=== PATIENT | female | born 1985 | race Caucasian/White ===

== ENCOUNTER 2020-09-02 20:14 | Emergency (ER) | payer OTHER, SELFPAY ==
[2020-09-02 21:05] VITALS: BP 127/58; PULSE 66; RESP 16; TEMP 36.4; O2SAT 98; BMI 25.7
[2020-09-02 22:58] VITALS: BP 116/64; PULSE 74; RESP 18; TEMP 36.8; O2SAT 96
--- NOTE | 2020-09-02 23:02 | ED_ITS ---
HPI - General Adult General Chief complaint: Extremity Problem Stated complaint: Bilateral arm swelling Time Seen by Provider: 09/02/20 23:02 Source: patient Mode of arrival: ambulatory Limitations: no limitations History of Present Illness HPI narrative: Patient no significant past medical history noticed swelling of the legs and upper extremities for last 1 week without any shortness of breath or chest pain. No prior history of anemia or liver disease patient is non alcoholic no thyroid problems. Patient has noticed swelling gets worse when she lays down. No leg pain or extremity pain no history of blood clots kidney problems or liver problems Related Data Allergies Allergy/AdvReac Type Severity Reaction Status Date / Time No Known Allergies Allergy Unverified 01/25/20 16:21 Review of Systems Review of Systems: Constitutional : No Weight loss, No Fever, No Chills ENT/Mouth : No sore throat, No Rhinorrhea Eyes: No Eye Pain, No Swelling Cardiovascular : No Chest Pain, no palpitations Respiratory : No Cough, No Sputum, no shortness of breath Gastrointestinal : no Nausea, No Vomiting, No Diarrhea, No abdominal Pain, no black stools Genitourinary : No Dysuria, No Urinary Frequency Musculoskeletal : No joint pain, No Myalgias, No Joint Swelling Skin : No Skin Lesions, No rash Neuro : No Weakness, No Numbness, No Dizziness, No Headache Psych : No Anxiety/Panic, No Depression Heme/Lymph: No Bruising, No Lymphadenopathy Endocrine : No Polyuria, No Polydipsia All other systems reviewed and are negative [facility] Past Medical History Medical History No known health problems Social History Social History Advance Directives: No Advance Directives Information Provided: Yes Physical Exam Vital Signs: Vital Signs: Last Vital Signs Temp 98.8 F 09/02/20 23:53 Pulse 75 09/02/20 23:53 Resp 16 09/02/20 23:53 BP 113/61 09/02/20 23:53 Pulse Ox 100 09/02/20 23:53 Body Mass Index 25.7 Appearance: Alert. Oriented X3. No acute distress. Eyes: PERRLA, No Nystagmus ENT: Pharynx normal. Oral Mucosa moist Neck: Normal inspection. Neck supple. CVS: Normal heart rate and rhythm. Pulses normal. Respiratory: No respiratory distress. Equal air entry bilateral, no wheezing/rales/rhonchi Abdomen: Soft and nontender. Bowel sounds are present, no mass palpable, no CVA tenderness Skin: Skin warm and dry. Normal skin color. Normal skin turgor. Extremities: Nonpitting 1+ lower extremity edema. No calf tenderness puffiness of both upper extremities without pitting edema Neuro: Oriented X 3. No motor deficit. No sensory deficit.No cerebellar signs , cranial nerves II-XII intact Medical Decision Making MDM Narrative Medical decision making narrative: Patient nonspecific puffiness without any pitting edema lab workup negative for any liver dysfunction kidney dysfunction thyroid functions are normal will discharge patient home advised to follow with PCP Lab Data Lab results reviewed: Yes I reviewed the patient's lab results. Result diagrams: 09/02/20 23:46 09/02/20 23:46 Labs: Lab Results 09/02/20 09/02/20 09/02/20 Range/Units 23:46 23:46 23:46 WBC 8.7 (4.8-10.8) X10*3/uL RBC 4.01 L (4.20-5.50) X10*6/uL Hgb 13.2 (12.0-16.0) g/dl Hct 38.3 (37-47) % MCV 95.5 (80-98) fL MCH 32.9 (27.0-33.0) pg MCHC 34.5 (31.0-35.0) g/dl RDW 11.6 (11.0-16.0) % Plt Count 254 (160-400) X10*3/uL MPV 10.4 (9.4-12.3) fL Immature Gran % (Auto) 0.7 H (0.0-0.4) % Neut % (Auto) 64.3 (45-73) % Lymph % (Auto) 24.6 (20-40) % Polk % (Auto) 6.6 (2-11) % Eos % (Auto) 3.2 (0-4) % Baso % (Auto) 0.6 (0-2) % Lymph # (Auto) 2.1 (1.2-4.9) X10*3/uL Polk # (Auto) 0.6 (0.1-1.2) X10*3/uL Eos # (Auto) 0.3 (0.0-0.4) X10*3/uL Baso # (Auto) 0.1 (0.0-0.2) X10*3/uL Abs Immat Gran (auto) 0.06 H (0.00-0.03) X10*3/uL Absolute Neuts (auto) 5.6 (2.0-8.3) X10*3/uL Absolute Nucleated RBC 0.000 (0.0-0.012) X10*3/uL Nucleated RBC % (auto) 0.0 (0.0-0.2) /100WBC Sodium 138 (135-145) mmol/L Potassium 3.8 (3.3-5.1) mmol/L Chloride 106 (96-108) mmol/L Carbon Dioxide 23 (22-29) mmol/L Anion Gap 13 (12-20) BUN 13 (9-16) mg/dL Creatinine 0.80 (0.5-1.4) mg/dL Estim Creat Clear Calc 92.1 Estimated GFR > 60 Random Glucose 98 (60-115) mg/dL Calcium 9.1 (8.4-10.2) mg/dL Total Bilirubin 0.7 (0.0-1.0) mg/dL AST 24 (5-31) U/L ALT 26 (0-31) U/L Alkaline Phosphatase 66 (39-117) U/L B-Natriuretic Peptide 10 (<100) pg/mL Total Protein 6.5 (6.5-8.0) g/dL Albumin 3.8 (3.5-5.0) g/dL TSH 0.92 (0.32-4.0) uIU/mL Discharge Plan Discharge Clinical Impression: Edema Qualifiers: Edema type: generalized Qualified Code(s): R60.1 - Generalized edema Patient Disposition: Home, Self-Care Instructions: Edema (ED) Additional Instructions: The cause of body swelling is not very clear. Your blood workup including liver functions kidney functions and thyroid functions are normal Follow-up with your PCP as scheduled for further evaluation and treatment, maybe use of diuretics if swelling gets worse
[2020-09-02 23:26] VITALS: BP 106/54; PULSE 75; RESP 12; O2SAT 98
[2020-09-02 23:53] VITALS: BP 113/61; PULSE 75; RESP 16; TEMP 37.1; O2SAT 100
[2020-09-02 23:53] LABS: MANUAL DIFF FLAG NO
[2020-09-02 23:55] LABS: Basophils Absolute Auto 0.1 X10*3/uL (0.0-0.2); Basophils Percent Auto 0.6 % (0-2); Eosinophils Absolute Auto 0.3 X10*3/uL (0.0-0.4); Eosinophils Percent Auto 3.2 % (0-4); Hematocrit 38.3 % (37-47); Hemoglobin 13.2 g/dl (12.0-16.0); Imm Gran Abs Auto 0.06 X10*3/uL (0.00-0.03); Imm Gran Pct Auto 0.7 % (0.0-0.4); Lymphocytes Absolute Auto 2.1 X10*3/uL (1.2-4.9); Lymphocytes Percent Auto 24.6 % (20-40); Mean Corpuscular HGB Conc 34.5 g/dl (31.0-35.0); Mean Corpuscular Hemoglobin 32.9 pg (27.0-33.0); Mean Corpuscular Volume 95.5 fL (80-98); Mean Platelet Volume 10.4 fL (9.4-12.3); Monocytes Absolute Auto 0.6 X10*3/uL (0.1-1.2); Monocytes Percent Auto 6.6 % (2-11); Neutrophils Absolute Auto 5.6 X10*3/uL (2.0-8.3); Neutrophils Percent Auto 64.3 % (45-73); Platelet Count 254 X10*3/uL (160-400); Red Blood Count 4.01 X10*6/uL (4.20-5.50); Red Cell Distribution Width 11.6 % (11.0-16.0); White Blood Count 8.7 X10*3/uL (4.8-10.8)
[2020-09-03 00:18] LABS: Alanine Aminotransferase 26 U/L (0-31); Albumin Level 3.8 g/dL (3.5-5.0); Alkaline Phosphatase 66 U/L (39-117); Anion Gap 13 (12-20); Aspartate Amino Transferase 24 U/L (5-31); Bilirubin Total 0.7 mg/dL (0.0-1.0); Blood Urea Nitrogen 13 mg/dL (9-16); Calcium 9.1 mg/dL (8.4-10.2); Carbon Dioxide 23 mmol/L (22-29); Chloride 106 mmol/L (96-108); Creatinine Clr Calc Pharmacy 92.1; Estimated Glomerular Filt Rate > 60; Glucose Random 98 mg/dL (60-115); Potassium 3.8 mmol/L (3.3-5.1); Sodium 138 mmol/L (135-145); Total Protein 6.5 g/dL (6.5-8.0)
[2020-09-03 00:21] LABS: B Type Natriuretic Peptide 10 pg/mL (<100)
--- NOTE | 2020-09-03 00:35 | PC.NURSE ---
PT STATES INCREASED SWELLING TO LEGS, FEET, HANDS & FOREARMS FOR >1 WEEK. PT STATES NO NEW MEDS, NO RECENT TRAVEL.
[2020-09-03 00:38] LABS: Thyroid Stimulating Hormone 0.92 uIU/mL (0.32-4.0)
== END 2020-09-03 00:45 | disposition home or self-care (01) ==
PROVIDERS: Emergency Provider Internal Medicine; PCP Internal Medicine
DX: R60.0 Localized edema (principal)
CPT/HCPCS: 36415; 80053; 83880; 84443; 85025; 99283

== ENCOUNTER 2022-08-08 01:53 | Emergency (ER) | payer OTHER, SELFPAY ==
[2022-08-08 02:28] VITALS: BP 142/87; PULSE 77; RESP 16; TEMP 36.4; O2SAT 97; BMI 26.6
--- NOTE | 2022-08-08 04:27 | PC.NURSE ---
pt did not return to the waiting room
== END 2022-08-08 04:28 | disposition left against medical advice (07) ==
PROVIDERS: Emergency Provider Emergency Medicine
DX: M54.2 Cervicalgia (principal)
CPT/HCPCS: 99281

== ENCOUNTER 2023-07-05 17:25 | Emergency (ER) | payer OTHER, SELFPAY ==
--- NOTE | ~2023-07-05 | US_ITS ---
EXAMINATION: US DIAGNOSTIC ULTRASOUND BREAST, RIGHT CLINICAL INFORMATION: Painful mass 12 - 2:00 position right breast. COMPARISON: None available. TECHNIQUE: Ultrasound of the breast is performed with real-time barrera scale imaging and color Doppler. FINDINGS: Multicystic area in the. Clinical concern. Largest is a septated cyst measuring 1.6 cm. Surrounding heterogeneous parenchyma. There is no solid mass, architectural abnormality, or ductal ectasia. US/US breast RT limited IMPRESSION: No suspicious mass. Multiple cysts at the 12 to 2:00 position right breast. ASSESSMENT: BI-RADS 2 - Benign Findings RECOMMENDATION: 1 year F/U This patient's information was entered into a reminder system with a target due date for their next mammogram.
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
[2023-07-05 17:55] VITALS: BP 145/85; PULSE 79; RESP 16; TEMP 36.6; O2SAT 99; BMI 30.3
[2023-07-05 18:56] LABS: MANUAL DIFF FLAG NO
[2023-07-05 18:58] LABS: Basophils Absolute Auto 0.1 X10*3/uL (0.0-0.2); Basophils Percent Auto 0.4 % (0-2); Eosinophils Absolute Auto 0.3 X10*3/uL (0.0-0.4); Eosinophils Percent Auto 2.9 % (0-4); Hemoglobin 13.5 g/dl (12.0-16.0); Imm Gran Abs Auto 0.02 X10*3/uL (0.00-0.03); Imm Gran Pct Auto 0.2 % (0.0-0.4); Lymphocytes Absolute Auto 1.8 X10*3/uL (1.2-4.9); Lymphocytes Percent Auto 15.7 % (20-40); Mean Corpuscular HGB Conc 34.6 g/dl (31.0-35.0); Mean Corpuscular Hemoglobin 32.1 pg (27.0-33.0); Mean Corpuscular Volume 92.9 fL (80.0-98.0); Mean Platelet Volume 10.1 fL (9.4-12.3); Monocytes Absolute Auto 0.8 X10*3/uL (0.1-1.2); Monocytes Percent Auto 6.6 % (2-11); Neutrophils Absolute Auto 8.7 x10*3/uL (2.0-8.3); Neutrophils Percent Auto 74.2 % (45-73); Platelet Count 267 X10*3/uL (160-400); Red Cell Distribution Width 11.6 % (11.0-16.0); White Blood Count 11.7 X10*3/uL (4.8-10.8)
[2023-07-05 19:13] LABS: Alanine Aminotransferase 19 U/L (0-31); Albumin Level 3.9 g/dL (3.5-5.0); Alkaline Phosphatase 74 U/L (39-117); Anion Gap 10 (12-20); Aspartate Amino Transferase 19 U/L (5-31); Bilirubin Total 0.7 mg/dL (0.0-1.0); Blood Urea Nitrogen 12 mg/dL (9-16); Calcium 9.6 mg/dL (8.4-10.2); Carbon Dioxide 27 mmol/L (22-29); Chloride 108 mmol/L (96-108); Estimated Glomerular Filt Rate > 60; Glucose Random 98 mg/dL (60-115); Potassium 3.5 mmol/L (3.3-5.1); Sodium 141 mmol/L (135-145); Total Protein 6.8 g/dL (6.5-8.0)
[2023-07-05] MEDS: Ibuprofen 600 MG TABLET PO (21:46)
[2023-07-05] MEDS: Acetaminophen 325 MG TABLET 650 MG PO (21:46)
[2023-07-05 23:10] VITALS: BP 126/70; PULSE 84; RESP 16; O2SAT 98
[2023-07-05] MEDS: traMADoL HCL 50 MG TABLET PO (23:40)
[2023-07-05] MEDS: Ondansetron ODT 4 MG TAB.RAPDIS TRANSLINGU (23:40)
[2023-07-05] MEDS: cephALEXin 500 MG CAPSULE PO (23:40)
== END 2023-07-05 23:50 | disposition home or self-care (01) ==
PROVIDERS: Physician Assistant Medical; Emergency Provider Internal Medicine
DX: N64.4 Mastodynia (principal)
CPT/HCPCS: 36415; 76642; 80053; 83735; 85025; 99283; 99284

== ENCOUNTER 2023-09-08 18:38 | Emergency (ER) | payer OTHER, SELFPAY ==
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
[2023-09-08 19:08] VITALS: BP 131/70; PULSE 68; RESP 16; TEMP 36.7; O2SAT 96; BMI 24.9
--- OUTSIDE RECORDS SUMMARY | 2023-09-08 19:22 | XMS_ITS | Continuity of Care Document ---
Author Organization [facility] Address [address] [place] [address]- Care Team Providers Care Captain Assistant Name Role Phone Amisha Reid MD Primary Care Physician [phone] Encounter [facility] Date(s): 07/29/23 - 08/28/23 [facility] [address] [place] [id number]- Attending Physician: Kira Cruz Admitting Physician: Admtr, [id number] Referring Physician: Admtr, [id number] Allergies, Adverse Reactions, Alerts No Known Allergies Immunizations Given and Recorded Vaccine Date Status Refusal Reason influenza virus vaccine, inactivated 04/19/12 Give n tetanus/diphtheria/pertussis, acel(Tdap) 04/19/12 Given Medications gabapentin 100 mg oral capsule 100 mg, 1, capsule, By Mouth, 3 times a day, PRN, # 60 capsule, Refills 5, Tot. Refills 5, Maintenance, Pain , Moderate, 08/08/22 22:28:00 EDT, Route to Pharmacy Electronically, [facility]/pharmacy #[id number], Partial fill upon patient request if the prescription... Start Date: 08/08/22 Status: Ordered MetroGel-Vaginal 0.75% gel with applicator 1 application, Vaginally, Once, # 70 Gm, 0 Refills, Maintenance, Gel Start Date: 01/28/12 Stop Date: 02/02/12 Status: Ordered Multivitamins By Mouth, Daily, 0 Refills, Maintenance Start Date: 01/28/12 Status: Ordered Problem List Condition Confirmation Course Effective Dates Status Health St atus Informant Obese class I Confirmed Active Confirmed Active Social History Social History Type Response Smoking Status Never (less than 100 in lifetime) entered on: 07/29/23 Sex Patient Care team information Care Team Personnel Name: Rafael Salazar MD Position: [facility] ART DEPARTMENT HEAD MD Member Role: Lifetime ART DEPARTMENT HEAD Physician Address: Address: [address] [place] [address] [address]- Name: Franklin YI, Amisha Lanier Position: Reference Physician Member Role: PCP Address: Address: [address] [place] [id number]- Name: Martha Shipman MD Position: [facility] Renal MD Member Role: Lifetime Consulting Physician Address: Address: [address] [place] [address], [address] [facility] [place] [address]- Care Team Related Persons Name: TREVON CRUZ Address: home [address] [place] [address] Name: TOMA TRIANA Address: home [address] [address] Name: GAURANG SHAW
--- OUTSIDE RECORDS SUMMARY | 2023-09-08 19:22 | XMS_ITS | Continuity of Care Document ---
Author Organization [facility] Address [address] [facility] [address]- Care Team Providers Care Eyeglass Assembler Name Role Phone Amisha Reid MD Primary Care Physician Encounter [facility] Date(s): 07/29/23 - 08/05/23 [facility] [address] [place] [id number] Attending Physician: Claire Hayes NP Referring Physician: Amisha Reid MD Allergies, Adverse Reactions, Alerts No Known Allergies Immunizations Given and Recorded Vaccine Date Status Refusal Reason influenza virus vaccine, inactivated 04/19/12 Give n tetanus/diphtheria/pertussis, acel(Tdap) 04/19/12 Given Medications gabapentin 100 mg oral capsule 100 mg, 1, capsule, By Mouth, 3 times a day, PRN, # 60 capsule, Refills 5, Tot. Refills 5, Maintenance, Pain , Moderate, 08/08/22 22:28:00 EDT, Route to Pharmacy Electronically, [facility]/pharmacy #[id number], Partial fill upon patient request if the [...] Obese class I Confirmed Active Confirmed Active Vital Signs Most recent to oldest [Reference Range]: 1 Height 163 cm (07/29/23 2:00 PM) Weight 80.1 kg (07/29/23 2:00 PM) Oxygen Saturation [94-100 %] 100 % (07/29/23 2:00 PM) Pulse Rate [55-90 bpm] 81 bpm (07/29/23 2:00 PM) Body Mass Index [18.5-24.99 kg/m2] 30.15 kg/m2 *>HHI* (07/29/23 2:00 PM) Blood Pressure [90-138/55-84 mm Hg] 132/ 70mm Hg (07/29/23 2:00 PM) Mode of Delivery (Oxygen) Room air (07/29/23 2:00 PM) Blood pressure sites Arm, left (07/29/23 2:00 PM) Weight Obtained Via Bed scale (07/29/23 2:00 PM) Social History Social History Type Response Smoking Status Never (less than 100 in lifetime) entered on: 07/29/23 Sex Patient Care team information Care Team Personnel Name: Rafael Salazar MD [facility] ICE PULLER MD Member Role: Lifetime ICE PULLER Physician Address: Address: [address] [place] [address] [address]- Name: Franklin YI, Amisha Lanier Position: Reference Physician Member Role: PCP Address: Address: [address] [place] [address]- Name: Umberto YI, Martha [facility] Renal MD Member Role: Lifetime Consulting Physician Address: Address: [address] [place] [address], [address] [facility] [address] Care Team Related Persons Name: TREVON CRUZ Address: home [address] [place] [address] Name: TOMA TRIANA Address: home [address] [place] [id number] Name: GAURANG SHAW
--- OUTSIDE RECORDS SUMMARY | 2023-09-08 19:22 | XMS_ITS | Continuity of Care Document ---
Author Organization 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 Start Date: 08/08/22 Status: Ordered MetroGel-Vaginal 0.75% gel with applicator 1 application, Vaginally, Once, # 70 Gm, 0 Refills, Maintenance, Gel Start Date: 01/28/12 Stop Date: 02/02/12 Status: Ordered Multivitamins By Mouth, Daily, 0 Refills, Maintenance Start Date: 01/28/12 Status: Ordered Problem List Condition Confirmation Course Effective Dates Status Health [facility] Informant Confirmed Active Results Radiology Reports * Exam Date Time Procedure Performing Provider Status 08/08/22 5:51 PM Chest 2 Views Frontal and Lat Brenden , Sebastian; Auth (Verified) Notes: (Chest 2 Views Frontal and Lat) Reason For Exam: Chest Pain;Other: RESULT: Chest 2 Views Frontal and Lat Chest 2 Views Frontal and Lat Hx of Present Illness: Patient reports a burning pain and swelling in bilat arms. Symptoms have been mildly present x 1 year and has had multiple work-ups by pcp without findings. Symptoms became severe last night. Was seen at [facility] today and sent to ED for further eval tx.; Reason: Other:; Chest Pain; Clinical Question(s): Other: COMPARISON: None. FINDINGS: LINES AND TUBES: None. LUNGS AND PLEURA: Clear lungs. Normal pulmonary vascularity. No pleural effusion. No pneumothorax. HEART, MEDIASTINUM AND KEITH: Heart is normal in size. Normal mediastinal and hilar contour. BONES AND SOFT TISSUES: No acute abnormality. IMPRESSION: No acute abnormality. WSN: [id number] Ordering Physician: Omar Cristobal Dictated By: Eddy Castaneda MD Dictated Date/Time: 08/08/22 5:53 pm Reviewed By: Eddy Castaneda MD Signed By: Eddy Castaneda MD Signed Date/Time: 08/08/22 5:53 pm Transcribed By: JADE Transcribed Date/Time: 08/08/22 5:52 pm Vital Signs Most recent to oldest [Reference Range]: 1 2 3 Height 163 cm (08/08/22 5:02 PM) Weight 75 kg (08/08/22 5:02 PM) Oxygen Saturation [94-100 %] 99 % (08/08/22 10:15 PM) 100 % (08/08/22 6:51 PM) 99 % (08/08/22 5:02 PM) Pulse Rate [55-90 bpm] 66 bpm (08/08/22 10:15 PM) 67 bpm (08/08/22 6:51 PM) 81 bpm (08/08/22 5:02 PM) Body Mass Index [18.5-24.99 kg/m2] 28.23 kg/m2 *H* (08/08/22 5:02 PM) Blood Pressure [90-138/55-84 mm Hg] 136/88mm Hg (08/08/22 10:15 PM) 133/75mm Hg (08/08/22 6:51 PM) 140/99mm Hg *H* (08/08/22 5:02 PM) Respiratory Rate [16-30 br/min] 18 br/min (08/08/22 10:15 PM) 18 br/min (08/08/22 5:02 PM) Temperature [96.8-100.4 DegF] 98.1 DegF (08/08/22 6:51 PM) 98.4 DegF (08/08/22 5:02 PM) Mode of Delivery (Oxygen) Room air (08/08/22 10:15 PM) Room air (08/08/22 6:51 PM) Room air (08/08/22 5:02 PM) Blood pressure sites Arm, left (08/08/22 10:15 PM) Arm, right (08/08/22 6:51 PM) Arm, left (08/08/22 5:02 PM) Temperature Route Oral (08/08/22 6:51 PM) Oral (08/08/22 5:02 PM) Note * Ashleigh Calderon DO: PERFORM Event Display: Patient Education Leaflets Authored Date: Pinched Nerve in the??Neck ?? [id number] Pinched Nerve in the??Neck A pinched nerve in the neck (cervical radiculopathy) is caused when the nerve that goes from the spinal cord to the neck or arm is irritated or has pressure on it. This may be caused by a bulging spinal disk. A spinal disk is the cushion between each spinal bone (vertebrae). Or it may be caused by a narrowing of the spinal joint because of osteoarthritis and wear and tear from repeated injuries. A pinched nerve can cause numbness, tingling, deep aching, or electrical shooting pain from the side of the neck all the way down to the fingers on one side. It can also cause weakness of the musclesthat the nerve controls. A pinched nerve may start after a sudden turning or bending force (such as in a car accident) or after a simple awkward movement. In either case, muscle spasm is commonly present and adds to the pain. Home care Follow these guidelines when caring for yourself at home: ??? Rest and relax the muscles. Use a comfortable pillow that supports your head and keeps your spine in a natural (neutral) position. Your head shouldn???t be tilted forward or backward. A rolled-up towel may help for a custom fit.??When standing or sitting, keep your neck in line with your body. Keep your head up and shoulders down. [place] from activities that need you to move your neck a lot. ??? Use heat and massage to help ease the pain. Take a hot shower or bath. Or use a heating pad. You can also use a cold pack for relief. You can make a cold pack by wrapping a plastic bag of crushed or cubed ice in a thin towel. Try both heat and cold. Use the method that feels best. Do this for 20 minutes several times a day. ??? Use acetaminophen or ibuprofen to control pain, unless another pain medicine was prescribed. If you have chronic liver or kidney disease, talk with your healthcare provider before using these medicines. Also talk with your provider if you???ve had a stomach ulcer or gastrointestinal bleeding. ??? Reduce stress. Stress can make it longer for your pain to go away. ??? Do any exercises or stretches that were given to you as part of your discharge plan. ??? Wear a soft collar, if prescribed. ??? Try physical therapy and massages. ??? Ask about injections near the affected nerve or surgery for a more serious injury. ?? Follow-up care Follow up with your healthcare provider, or as advised. If you have muscle weakness, seek attentionright away. You may need more tests.??Tell your provider about any fever, chills, or weight loss. If X-rays were taken, a radiologist may look at them. You will be told of any new findings that mayaffect your care. ?? When to get medical advice Call your healthcare provider right away if any of the following occur: ??? Pain becomes worse evenafter taking prescribed pain medicine ??? Weakness in the arm or legs ??? Numbness in the arm gets worse ??? Trouble breathing or swallowing ?? Last Reviewed Date: 2022 ?? [id number] [employer]. All rights reserved. This information is not intended as a substitute for professional medical care. Always follow your healthcare professional's instructions. ?? * LISANDROSPWANDA harden S: TRANSCRIHAFSA Castaneda MD, Eddy S: VERIFY Event Display: Result: Authored Date: [id number] Chest 2 Views Frontal and Lat Hx of Present Illness: Patient reports a burning pain and swelling in bilat arms. Symptoms have been mildly present x 1 year and has had multiple work-ups by pcp without findings. Symptoms became severe last night. Was seen at [facility] today and sent to ED for further eval tx.; Reason: Other:; Chest Pain; Clinical Question(s): Other: COMPARISON: None. FINDINGS: LINES AND TUBES: None. LUNGS AND PLEURA: Clear lungs. Normal pulmonary vascularity. No pleural effusion. No pneumothorax. HEART, MEDIASTINUM AND KEITH: Heart is normal in size. Normal mediastinal and hilar contour. BONES AND SOFT TISSUES: No acute abnormality. IMPRESSION: No acute abnormality. WSN: [id number] Ordering Physician: Omar Cristobal Dictated By: Eddy Castaneda MD Dictated Date/Time: 08/08/22 5:53 pm Reviewed By: Eddy Castaneda MD Signed By: Eddy Castaneda MD Signed Date/Time: 08/08/22 5:53 pm Transcribed By: JADE Transcribed Date/Time: 08/08/22 5:52 pm Patient Care team information Care Team Personnel Name: Amisha Reid MD Position: Reference Physician Member Role: PCP Address: Address: [address] [place] [address]- Name: Eufemia Arredondo Position: [facility] ED [facility] Name: Timmy Perez MD Position: [facility] ED Medicine MD Member Role: Admitting Physician Address: Address: [address] [place] [address]- Name: Ashleigh Calderon DO Position: [facility] Resident Member Role: ED Resident Address: Address: [address] [place] [address] [place] [address]- [place] Name: Shama Tang RN Position: [facility] ED RN W/OE and Tasks Member Role: Patient Care Provider Care Team Related Persons Name: TREVON CRUZ Address: home [address] [place] [address] Name: TOMA TRIANA Address: home [address] [place] [id number]
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
[2023-09-08] MEDS: Acetaminophen 325 MG TABLET 975 MG PO (20:46)
[2023-09-08 22:49] VITALS: BP 114/68; PULSE 53; RESP 18; TEMP 36.7; O2SAT 98
[2023-09-08 22:53] VITALS: BP 114/60; PULSE 52; RESP 18; TEMP 36.6; O2SAT 98
== END 2023-09-08 22:54 | disposition home or self-care (01) ==
PROVIDERS: Emergency Provider Emergency Medicine
DX: S09.90XA Unspecified injury of head, initial encounter (principal); S16.1XXA Strain of muscle, fascia and tendon at neck level, initial encounter; V43.52XA Car driver injured in collision with other type car in traffic accident, initial encounter; Y93.89 Activity, other specified; Y92.410 Unspecified street and highway as the place of occurrence of the external cause; Y99.9 Unspecified external cause status
CPT/HCPCS: 70450; 70486; 72072; 72100; 72125; 99284

== ENCOUNTER 2024-12-11 20:04 | Emergency (ER) | payer OTHER, SELFPAY ==
[2024-12-11 20:52] VITALS: BP 122/61; PULSE 60; RESP 20; TEMP 36.6; O2SAT 98
--- NOTE | 2024-12-11 20:56 | ED.GENADULT ---
HPI - General Adult General Chief complaint: Headache Stated complaint: migraine 5days, weakness Time Seen by Provider: 12/12/24 01:50 Source: patient Limitations: no limitations History of Present Illness ED Provider: Lynn Turner PA-C HPI narrative: 39-year-old female presents with a migraine type headache x5 days. The pain is within frontal region and has been constant pressure. Associated photo phobia, phonophobia. Denies dizziness, nausea or vomiting. Patient states she has been trying sfec-gua-imsiewl medications without relief from her symptoms. Patient states she called her primary care provider who told her to come to the emergency department for assessment. Patient also states she has a dark patch over her mid back that she feels is expanding. She also complains that one of her great toes has been numb since the onset of her headache. She denies back pain. Denies neck pain, trauma or use of anticoagulation. Denies stress, recent illness, changes in diet, new medications, the patient has had an IUD for a prolonged period of time, no change in control method. Related Data Previous Rx's ?Medication ?Instructions ?Recorded cephalexin 500 mg capsule 500 mg PO QID #28 caps 07/05/23 ondansetron 4 mg disintegrating 4 mg PO Q8H PRN nausea and 07/05/23 tablet vomiting #20 tabs tramadol 50 mg tablet 50 mg PO Q6H PRN severe pain 07/05/23 (scale score 7-10) #12 tabs cyclobenzaprine 5 mg tablet 5 mg PO TID PRN muscle spasm #20 09/08/23 tabs uoooqjdqye-ycyetfhhooidy-qqfmlrrk 1 cap PO TID PRN headache #10 caps 12/12/24 50 mg-300 mg-40 mg capsule (Fioricet) Allergies Allergy/AdvReac Type Severity Reaction Status Date / Time No Known Allergies Allergy Verified 12/11/24 20:55 Review of Systems Review of Systems: Yes all other systems are reviewed and are negative Constitutional: Constitutional: Denies fatigue, Denies fever(s) and Reports headache(s) ENT: Denies dizziness, Reports headache(s), Denies nasal congestion and Denies neck pain Cardiovascular: Cardiovascular: Denies chest pain and Denies dyspnea Respiratory: Respiratory: Denies chest congestion, Denies cough and Denies dyspnea Gastrointestinal: Gastrointestinal: Denies abdominal pain, Denies nausea and Denies vomiting Musculoskeletal: Musculoskeletal: Denies back pain and Denies neck pain Neurologic: Denies dizziness and Reports headache(s) Endocrine: Endocrine: Denies fatigue PMFSH Past Medical History Attestation statement: The following information was validated with the patient. Medical History No known health problems Social History Social History Smoked in Last 30 Days: No Use of substances other than those prescribed or required for medical reasons: No Advance Directives: No Advance Directives Information Provided: No Do you have a plan to hurt others: No Plan Patient : No Physical Exam ED Vital Signs: Vital Signs - 24 hr 12/11/24 20:52 12/12/24 01:39 12/12/24 04:27 Temperature 97.8 F 97.1 F Pulse Rate 60 54 54 Respiratory Rate 20 16 18 Blood Pressure 122/61 109/71 116/63 Pulse Oximetry 98 98 100 Oxygen Delivery Method Room Air Room Air Room Air BMI result Body Mass Index 30.0 Const Other: Alert well-appearing Orientation/consciousness: patient oriented x3 Neck Neck: Yes full ROM and Yes no meningeal signs Resp Effort & Inspection: normal respiratory effort Cardio Other: Normal peripheral perfusion Skin Other: Warm dry no rash, there is a patch of hyperpigmentation that has nonpalpable, over mid upper back, nonpainful not pruritic Neuro General: patient oriented x3, gait normal, no meningeal signs, no focal motor deficits and CN's II-XI intact bilaterally Psych Other: Cooperative Course Course Course Narrative: RME performed by Maria Alejandra Duran PA-C. Patient is a 39 year old assigned female at presenting to the emergency department with a headache and photosensitivity. Patient states over the last 5 days she has had a headache with photosensitivity. Detailed physical exam and review of systems are deferred to the primary substance abuse counselor. Labs ordered. Patient placed back in the waiting room pending room availability and results. Reevaluation(s) Reevaluation #1: Nursing relayed that the patient declined the Compazine, unclear why, she did state ?that is enough medicine?. Prior to administering the migraine cocktail, I explained the use of each medication to her. She did receive the Decadron, Toradol fluid and Benadryl. Medications Administered Discontinued Medications Generic Name Dose Route Start Last Admin Trade Name John PRN Reason Stop Dose Admin Dexamethasone Sodium Phosphate 10 mg 12/12/24 02:03 12/12/24 02:22 Dexamethasone Sod Phosphate 10 Mg/Ml Vial IVPUSH 12/12/24 02:04 10 mg ONCE ONE Administration Diphenhydramine HCl 25 mg 12/12/24 02:03 12/12/24 02:24 Diphenhydramine Hcl 50 Mg/Ml Vial IVPUSH 12/12/24 02:04 25 mg ONCE ONE Administration Sodium Chloride 500 mls @ 500 mls/hr 12/12/24 02:03 12/12/24 03:27 Ns IV 12/12/24 03:02 Infused .Q1H ONE Infusion Ketorolac Tromethamine 15 mg 12/12/24 02:03 12/12/24 02:20 Ketorolac Tromethamine 15 Mg/Ml Vial IVPUSH 12/12/24 02:04 15 mg ONCE ONE Administration Prochlorperazine Edisylate 10 mg 12/12/24 02:03 12/12/24 02:28 Prochlorperazine Edisylate 10 Mg/2 Ml Vial IVPUSH 12/12/24 02:04 Not Given ONCE ONE Medical Decision Making Medical Decision Making MDM Narrative: 39-year-old female presents with a migraine type headache x5 days. The pain is within frontal region and has been constant pressure. Associated photo phobia, phonophobia. Denies dizziness, nausea or vomiting. Patient states she has been trying inqx-ter-spgtvbp medications without relief from her symptoms. Patient states she called her primary care provider who told her to come to the emergency department for assessment. Patient also states she has a dark patch over her mid back that she feels is expanding. She also complains that one of her great toes has been numb since the onset of her headache. She denies back pain. Denies neck pain, trauma or use of anticoagulation. No chronic issues History: Per patient I have considered the following differential diagnoses: Migraine headache, sinusitis, intracranial hemorrhage, meningitis Plan: The patient here with a migraine type headache, I have offered a migraine cocktail. The patient is alluding to the fact that primary care wanted her to have a head CT to rule out a bleed. I explained at length, that the patient does not have symptoms consistent with an intracranial hemorrhage. She is neurologically intact, without active vomiting. There was no preceding head trauma and she is not on a blood thinner. Also thought about meningitis, however there was no nuchal rigidity, she has full range of motion of the neck. We will reassess once she has had her migraine cocktail. Screening labs and a viral panel were obtained from triage. I have independently reviewed the following tests: Labs: No leukocytosis, not anemic, no electrolyte abnormality, not , urine not infected, viral panel negative 7:23 AM 12/12/2024 (Dr. Tabitha Mccain, D.O.) patient feeling improved after Toradol. Stable for discharge at this point. We had an extensive discussion regarding importance of follow-up as well as strict return precautions. She will be discharged home in stable and improved condition. Lab Data 12/11/24 21:12 12/11/24 21:12 Labs: Lab Results 12/11/24 Range/Units 21:12 WBC 9.1 (4.8-10.8) X10*3/uL RBC 3.90 L (4.20-5.50) X10*6/uL Hgb 12.7 (12.0-16.0) g/dl Hct 36.3 L (37.0-47.0) % MCV 93.1 (80.0-98.0) fL MCH 32.6 (27.0-33.0) pg MCHC 35.0 (31.0-35.0) g/dl RDW 11.9 (11.0-16.0) % Plt Count 252 (160-400) X10*3/uL MPV 10.4 (9.4-12.3) fL Immature Gran % (Auto) 0.3 (0.0-0.4) % Neut % (Auto) 53.3 (45-73) % Lymph % (Auto) 29.4 (20-40) % [place] % (Auto) 6.4 (2-11) % Eos % (Auto) 9.9 H (0-4) % Baso % (Auto) 0.7 (0-2) % Lymph # (Auto) 2.7 (1.2-4.9) X10*3/uL [place] # (Auto) 0.6 (0.1-1.2) X10*3/uL Eos # (Auto) 0.9 H (0.0-0.4) X10*3/uL Baso # (Auto) 0.1 (0.0-0.2) X10*3/uL Abs Immat Gran (auto) 0.03 (0.00-0.03) X10*3/uL Absolute Neuts (auto) 4.9 (2.0-8.3) x10*3/uL Absolute Nucleated RBC 0.000 (0.0-0.012) X10*3/uL Nucleated RBC % (auto) 0.0 (0.0-0.2) /100WBC Sodium 138 (135-145) mmol/L Potassium 3.6 (3.3-5.1) mmol/L Chloride 108 (96-108) mmol/L Carbon Dioxide 25 (22-29) mmol/L Anion Gap 9 L (12-20) BUN 16 (9-16) mg/dL Creatinine 0.98 (0.5-1.4) mg/dL Estim Creat Clear Calc 76.9 Estimated GFR > 60 Random Glucose 83 (60-115) mg/dL Calcium 9.1 (8.4-10.2) mg/dL Magnesium 1.9 (1.6-2.6) mg/dL Total Bilirubin 0.4 (0.0-1.0) mg/dL AST 28 (5-31) U/L ALT 22 (0-31) U/L Alkaline Phosphatase 70 (39-117) U/L Total Protein 6.7 (6.5-8.0) g/dL Albumin 4.0 (3.5-5.0) g/dL Beta HCG, Quant < 2 mIU/mL Urine Color Yellow Urine Appearance Clear Urine pH 6.5 (5.0-9.0) Ur Specific [place] 1.015 (1.005-1.025) Urine Protein Negative (Neg-Trace) mg/dL Urine Glucose (UA) Negative (Negative) mg/dL Urine Ketones Negative (Negative) mg/dL Urine Blood Negative (Negative) Urine Nitrite Negative (Negative) Ur Leukocyte Esterase Negative (Negative) Influenza Type A (PCR) NEGATIVE (Negative) Influenza Type B (PCR) NEGATIVE (Negative) RSV RNA Qual (PCR) NEGATIVE (Negative) SARS-CoV-2 RNA (RT-PCR) NEGATIVE (Negative) Discharge Plan Discharge Clinical Impression: Migraine Patient Disposition: Home, Self-Care Instructions: Migraine Headache (ED) Prescriptions: New tmbtriutpv-dvpxbexipffyd-hdhb [Fioricet] 50-300-40 mg capsule 1 cap PO TID PRN (Reason: headache) Qty: 10 0RF No Action cephalexin 500 mg capsule 500 mg PO QID Qty: 28 0RF tramadol 50 mg tablet 50 mg PO Q6H PRN (Reason: severe pain (scale score 7-10)) Qty: 12 0RF ondansetron 4 mg tablet,disintegrating 4 mg PO Q8H PRN (Reason: nausea and vomiting) Qty: 20 0RF cyclobenzaprine 5 mg tablet 5 mg PO TID PRN (Reason: muscle spasm) Qty: 20 0RF Stand Alone Forms: Work/School Release Interventions: ED Discharge Assessment Last Done: 12/12/24 07:38 Discharge Date/Time: 12/12/24 07:39 Print Language: Belgian
--- OUTSIDE RECORDS SUMMARY | 2024-12-11 21:18 | XMS_ITS | Encounter Summary ---
Author Organization [facility] Address [address] [place] [address] Care Team Providers Care Hand Tube Bender Name Role Phone Lala Bryan MD Primary Care Provider [phone] Reason for Visit * Reason Onset Date Comments Headache 12/11/2024 Fatigue 12/11/2024 Encounter Details Date Type Department Care Team ([facility] st Contact Info) Description 12/11/2024 Nurse Triage Adult Medicine [facility] [address] [place] [address] Lala Bryan MD [address] [place] [address] Headache; Fatigue Social History Tobacco Use Types Packs/Day Years Used Date Smoking Tobacco: Never Smokeless Tobacco: Never Alcohol Use Standard Drinks/Week Comments Not Currently 0 (1 standard drink = 0.6 oz pur e alcohol) 2 drinks every 2 months Housing Instability Answer Date Recorde d Are you worried that in the next 2 months you may not have stable housing? No 08/14/2024 Food Access & Nutrition Answer Date Rec orded Do you have access to a vari ety of food including fruits and vegetables? Yes 08/14/2024 Access to Healthcare Answer Date Record ed Within the last 3 months, ho w many times did you visit the emergency department for your medical care? 0 08/14/2024 Health Literacy Answer Date Recorded How often do you need to hav e someone help you when you read instructions, pamphlets, or other written material from your doctor or pharmacy? Never 08/14/2024 Caregiver: How often do you need to have someone help you when you read instructions, pamphlets, or other written material from your doctor or pharmacy? Not on file 08/14/2024 Financial Risk Answer Date Recorded How hard is it for you to pa y for the very basics like food, housing, medical care, and air conditioning / heating? Somewhat hard 08/14/2024 Transportation Answer Date Recorded Has the lack of transportati on kept you from meetings, work, or from getting things needed for daily living? No Has the lack of transportati on kept you from medical appointments or from getting medications? No 08/14/2024 Social Isolation Answer Date Recorded How often do you feel lonely or isolated from th ose around you? Never 08/14/2024 Food Risk Answer Date Recorded Within the past 12 months we worried whether our food would run out before we got money to buy more. Sometimes true 025 Within the past 12 months th e food we bought just didn't last and we didn't have money to get more. Never true 08/14/2024 Dependent Care Answer Date Recorded Do you need help finding or paying for care for your loved ones. For example, children's court magistrate or elderly care for an older adult? No 08/14/2024 Education Answer Date Recorded Do you think completing more education or training, like finishing a GED, going to college, or learning a trade, would be helpful for you? No 08/14/2024 Employment and Income Answer Date Recor ded During the last four weeks, have you been actively looking for work? No 08/14/2024 Living Situation Answer Date Recorded What is your living situation? 0 08/14/2024 Education Answer Date Recorded What is the highest level of school you have completed or the highest degree you have received? 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 She is in agreement with thisplan and states she will go to [facility] ER. She was advised to call for a follow up appointment after she is evaluated in the ER. She is aware the appointment she made for tomorrow willbe cancelled. Reason for Disposition [1] SEVERE headache (e.g., excruciating) AND [2] worst headache of life Answer Assessment - Initial Assessment Questions 1. LOCATION: Where does it hurt? Front part of of her head 2. ONSET: When did the headache start? (e.g., minutes, hours, days) 4-5 days ago 3. PATTERN: Does the pain come and go, or has it been constant since it started? Constant 4. SEVERITY: How bad is the pain? and What does it keep you from doing? (e.g., Scale 1-10; mild, moderate, or severe) 8/10. She describes the pain as aching. 5. RECURRENT SYMPTOM: Have you ever had headaches before? If Yes, ask: When was the last time? and What happened that time? She has had headaches before but not like this. 6. CAUSE: What do you think is causing the headache? Unknown 7. MIGRAINE: Have you been diagnosed with migraine headaches? If Yes, ask: Is this headache similar? No diagnosis of migraines 8. HEAD INJURY: Has there been any recent injury to your head? No 9. OTHER SYMPTOMS: Do you have any other symptoms? (e.g., fever, stiff neck, eye pain, sore throat, cold symptoms) No other symptoms 10. : Is there any chance you are ? When was your last menstrual period? No. She has an IUD and does not get her menstrual period. Protocols used: [id number] * Luly Valentin - 12/11/2024 4:24 PM EDT Patient call requires triage: Symptoms patient is presenting: patient was booked for a 3:15 appointment on 12/12 with Nida Barksdale for headaches and fatigue. Provider is suggesting the patient is triaged. Appointment not cancelled at this time. Patient reporting headaches and fatigue for 4-5 days. Patient was called for more information but no answer, left message to return call. Patient needs a late appointment. Patient called back and no recent Covid exposure. How long has patient had these symptoms?: 4-5 days For ALL patients calling to schedule any appointment (routine, sick visit, follow up, consult, etc.) in the outpatient setting please ask the following questions: Do you have fever of higher than 101, sore throat with difficulty swallowing or severe shortness ofbreath? no If YES to any of these above symptoms, send a message to triage and do not book. Red dot. If no, an audio or video visit should be booked. Have you had close contact with someone with Coronavirus in the last 14 days? No, unknown at this time Have you traveled abroad? No unknown Have you traveled recently to another state outside of [place], [place], [place], [place], [place], [place], [place]? No unknown o If yes, did you quarantine for 14 days or have a negative covid test? No unknown If yes to any of the above, patient is not to be scheduled in office until after 14 day quarantine or negative covid test. If pain or injury related was it due to an accident at work or from a motor vehicle accident? If yes, date of accident/Injury: No If yes, gather 3rd democrat insurance information Third Constitution Party Information: not applicable PCP: Lala Bryan MD Payor: [employer] PLAN / Plan: [employer] MEDICA[employer] / Product Type: *No Product type* / documented in this encounter Plan of Treatment Not on file documented as of this encounter Visit Diagnoses Not on filedocumented in this encounter Additional Health Concerns Assessment Noted Time PHQ-9 Depression Total Score: 2 08/15/19 25 4:22 PM EDT documented as of this encounter Care Teams Hand Tube Bender Relationship Specialty Start Date End Date Lala Bryan MD [address] [place] [address] PCP - General Internal Medicine 03/12/21 documented as of this encounter
--- OUTSIDE RECORDS SUMMARY | 2024-12-11 21:18 | XMS_ITS | Encounter Summary ---
Author Organization [facility] Address [address] [place] [phone] Phone Care Team Providers Care Vp Talent Management Name Role Phone Hue Pelaez MD Primary Care Provider Encounter Details Date Type Department Care Team (Late st Contact Info) Description 03/11/2017 Conversion Encounter [facility] [address] [place] [address] Social History Tobacco Use Types Packs/Day Years Used Date Smoking Tobacco: Never Assessed Comments Unknown Sex and Gender Information Value Date Recorded Sex Assigned at Not on file Legal Sex Female 4:14 PM EDT Gender Identity Not on file Sexual Orientation Not on file documented as of this encounter Plan of Treatment Not on file documented as of this encounter Visit Diagnoses Not on filedocumented in this encounter Care Teams Vp Talent Management Relationship Specialty Start Date End Date Hue Pelaez MD [address] [place] [address] PCP - General 12/18/16 07/22/22 documented as of this encounter
--- OUTSIDE RECORDS SUMMARY | 2024-12-11 21:18 | XMS_ITS ---
Author Name [facility] Organization Unknown Care Team Organization Name Specialty Phone Email Start Date End Da te [facility] Lala Bryan Primary Care 02/10/2023 [facility] NORBERTO CHAVEZ Primary Care 03/17/20222023
[2024-12-11 21:20] LABS: Hematocrit 36.3 % (37.0-47.0); Hemoglobin 12.7 g/dl (12.0-16.0); Imm Gran Abs Auto 0.03 X10*3/uL (0.00-0.03); Imm Gran Pct Auto 0.3 % (0.0-0.4); Lymphocytes Absolute Auto 2.7 X10*3/uL (1.2-4.9); MANUAL DIFF FLAG NO; Mean Corpuscular HGB Conc 35.0 g/dl (31.0-35.0); Mean Corpuscular Hemoglobin 32.6 pg (27.0-33.0); Mean Corpuscular Volume 93.1 fL (80.0-98.0); NRBC Abs Auto 0.000 X10*3/uL (0.0-0.012); NRBC Pct Auto 0.0 /100WBC (0.0-0.2); Platelet Count 252 X10*3/uL (160-400); Red Blood Count 3.90 X10*6/uL (4.20-5.50); White Blood Count 9.1 X10*3/uL (4.8-10.8)
[2024-12-11 21:22] LABS: Appearance Urine Clear; Glucose Urine UA Negative (Negative); PH 6.5 (5.0-9.0); Specific Gravity - Urine 1.015 (1.005-1.025)
[2024-12-11 21:36] LABS: Alanine Aminotransferase 22 U/L (0-31); Albumin Level 4.0 g/dL (3.5-5.0); Alkaline Phosphatase 70 U/L (39-117); Anion Gap 9 (12-20); Aspartate Amino Transferase 28 U/L (5-31); Blood Urea Nitrogen 16 mg/dL (9-16); Calcium 9.1 mg/dL (8.4-10.2); Carbon Dioxide 25 mmol/L (22-29); Chloride 108 mmol/L (96-108); Creatinine Clr Calc Pharmacy 76.9; Estimated Glomerular Filt Rate > 60; Magnesium 1.9 mg/dL (1.6-2.6); Potassium 3.6 mmol/L (3.3-5.1); Sodium 138 mmol/L (135-145); Total Protein 6.7 g/dL (6.5-8.0)
[2024-12-11 21:56] LABS: Resp Syncy Virus RNA Qual PCR NEGATIVE (Negative); SARS COV2 PCR INHOUSE NEGATIVE (Negative)
[2024-12-12 01:39] VITALS: BP 109/71; PULSE 54; RESP 16; O2SAT 98
[2024-12-12 04:27] VITALS: BP 116/63; PULSE 54; RESP 18; TEMP 36.2; O2SAT 100
[2024-12-12 07:25] VITALS: BP 110/56; PULSE 63; RESP 16; TEMP 35.6; O2SAT 95
--- NOTE | 2024-12-12 07:25 | PC.NURSE ---
Pt A&O X4 VSS NAD states Nelson os omproved some but still present. No other complaints- Pt states I just want to go home
[2024-12-12 07:38] VITALS: BP 110/56; PULSE 63; RESP 16; TEMP 35.6; O2SAT 95
== END 2024-12-12 07:39 | disposition home or self-care (01) ==
PROVIDERS: Physician Assistant Medical; Emergency Provider Emergency Medicine; PCP Registered Nurse Community Health
DX: G43.909 Migraine, unspecified, not intractable, without status migrainosus (principal); H53.149 Visual discomfort, unspecified
CPT/HCPCS: 80053; 81003; 83735; 84702; 85025; 87637; 96361; 96374; 96375; 99284; J1100; J1200; J1885